=== PATIENT | female | born 1985 | race Caucasian/White ===

== ENCOUNTER 2017-02-06 04:27 | Emergency (ER) | payer BC ==
--- NOTE | 2017-02-06 05:35 | ER Document Report ---
ED Respiratory Problem - General Chief Complaint: Shortness Of Breath Stated Complaint: SHORTNESS OF BREATH Time Seen by Provider: 02/06/17 05:35 Mode of Arrival: Ambulatory Information source: Patient Notes: 31 yo female with cough, congestion for 3 days. Driving back from [place], had to stop at ER in [place] on way back due to excessive coughing. Has Albuterol inhaler, started on Prednisone and tessalon perles. Crying, wanting the cough to go away. Had coughing fit when arrived home early this am TRAVEL OUTSIDE OF THE [place] IN LAST 30 DAYS: No - Related Data Allergies/Adverse Reactions: acetaminophen [From Percocet] Allergy (Verified 02/06/17 04:36) oxycodone [From Percocet] Allergy (Verified 02/06/17 04:36) Sulfa (Sulfonamide Antibiotics) Allergy (Verified 02/06/17 04:36) Past Medical History - General Information source: Patient - Social History Smoking Status: Never Smoker Frequency of alcohol use: None Drug Abuse: None Lives with: Family Family History: Reviewed & Not Pertinent - Medical History Medical History: Negative Surgical Hx: Negative Review of Systems - Review of Systems Constitutional: No symptoms reported EENT: No symptoms reported Cardiovascular: No symptoms reported Respiratory: See HPI Gastrointestinal: No symptoms reported Genitourinary: No symptoms reported Female Genitourinary: No symptoms reported Musculoskeletal: No symptoms reported Skin: No symptoms reported Hematologic/Lymphatic: No symptoms reported Neurological/Psychological: No symptoms reported Physical Exam - Vital signs Vitals: Temp Pulse Resp BP Pulse Ox 97.6 F 88 20 116/64 96 02/06/17 04:31 02/06/17 04:31 02/06/17 04:31 02/06/17 04:31 02/06/17 04:31 Interpretation: Normal - General General appearance: Appears well, Alert - HEENT Head: Normocephalic, Atraumatic Eyes: Normal Conjunctiva: Normal Pupils: PERRL Mucous membranes: Normal Pharynx: Normal Neck: Supple. No: Lymphadenopathy - Respiratory Respiratory status: No respiratory distress Chest status: Nontender Breath sounds: Normal Chest palpation: Normal - Cardiovascular Rhythm: Regular Heart sounds: Normal auscultation Murmur: No - Abdominal Inspection: Normal Distension: No distension Bowel sounds: Normal Tenderness: Nontender Organomegaly: No organomegaly - Back Back: Normal, Nontender - Extremities General upper extremity: Normal inspection, Nontender, Normal color, Normal ROM , Normal temperature General lower extremity: Normal inspection, Nontender, Normal color, Normal ROM , Normal temperature, Normal weight bearing. No: Chrissy's sign - Neurological Neuro grossly intact: Yes Cognition: Normal Orientation: AAOx4 Fang Coma Scale Eye Opening: Spontaneous Fang Coma Scale Verbal: Oriented [place] Coma Scale Motor: Obeys Commands [place] Coma Scale Total: 15 Speech: Normal Motor strength normal: LUE, RUE, LLE, RLE Sensory: Normal - Psychological Associated symptoms: Normal affect, Normal mood - Skin Skin Temperature: Warm Skin Moisture: Dry Skin Color: Normal Skin irregularity: negative: Rash Course - Vital Signs Vital signs: Temp Pulse Resp BP Pulse Ox 97.6 F 88 22 H 93/55 L 95 02/06/17 04:31 02/06/17 04:31 02/06/17 06:01 02/06/17 06:01 02/06/17 06:01 Discharge - Discharge Clinical Impression: Laryngitis, Bronchitis Condition: Good Disposition: HOME, SELF-CARE Instructions: Bronchitis ([facility]), Corticosteroid Medication ([facility]), Inhaled Bronchodilators ([facility]), Laryngitis ([facility]), Oral Narcotic Medication ([facility]), Tessalon Perles ([facility]) Additional Instructions: plenty of fluids cool mist humidifier use your inhaler to er if worse see your medical provider on tuesday for recheck you may continue the tessalon perles and the prednisone that has been prescribed for you Please complete the patient satisfaction survey if you get one, and return it.. If you do not receive a survey, then you can go to the [facility] website, [email or web address] and place your comments about your very good care. Thank you very much. It was a pleasure being your medical provider today. Referrals: MEIR KATE MD [Primary Care Provider] - Follow up as needed
[2017-02-06] MEDS ORDERED: HYDROCODONE/ACETAMINOPHEN 5-325 MG 6 TAB/DSPK PO PRN ×2 (05:53→05:55)
[2017-02-06] MEDS ORDERED: ONDANSETRON 4 MG TAB.RAPDIS PO ONE (05:53)
[2017-02-06] MEDS ORDERED: HYDROCODONE/ACETAMINOPHEN 5-325 MG TABLET PO ONE (05:55)
[2017-02-06 06:41] VITALS: BP 93/55
== END 2017-02-06 07:04 | disposition home or self-care (01) ==
LOC: ER 04:27
DX: J04.0 Acute laryngitis (principal); J40 Bronchitis, not specified as acute or chronic; Z88.6 Allergy status to analgesic agent; Z88.2 Allergy status to sulfonamides
CPT/HCPCS: 99284; S0119